=== PATIENT | female | born 1960 | race Caucasian/White ===

== ENCOUNTER 2024-10-25 05:58 | Day surgery (SDC) | payer MEDICARE, OTHER ==
[~2024-10-25] VITALS: Ht 165.1 cm; Wt 94.5 kg
[2024-10-25] VITALS (22 sets, daily range): BP systolic 105–172; BP diastolic 59–100
[~2024-10-25 05:58] MED LIST: ACET500 PO; ALBU2.5V5 INH; ALBU90OI INH; AMLO10 PO; AUVI-Q0.1 MG/0.2 INJ; BIOTIN1 MG PO; EPIPEN0.3 MG/0.3 IM; Flexeril10 MG PO; HYDCHL25 PO; LEVSOD88 PO; Loratadine10 MG PO; Omeprazole20 M1 PO; Pravastatin Sod80 MG PO; Ramipril10 MG PO; Vitamin D1000 UNI1 PO; [UNRECOGNIZED DRUG - OTHER] PO
[2024-10-25] MEDS ORDERED: Tranexamic Acid 100 ML IV SCH (06:10)
[2024-10-25] MEDS ORDERED: CeFAZolin Sodium 2,000 MG in NS 100 ML IV SCH ×2 (06:10→16:00)
[2024-10-25] MEDS ORDERED: Ropivacaine 0.5% HCl/Pf 123.125 MG,EPINEPHrine HCL 0.25 MG,Ketorolac Tromethamine 15 MG... INFIL SCH (06:10)
[2024-10-25] MEDS ORDERED: Chlorhexidine Mouth Care 15 ML UDC MT SCH (06:10)
--- NOTE | 2024-10-25 06:57 | NUR ---
Wheelchaired into Day Surgery. History, Chart, Medications and Allergies reviewed before start of procedure. Pre-Op teaching done. Pt verbalizes understanding.
[2024-10-25] MEDS ORDERED: Mepivacaine MPF 2% Inj 20 ML Vial ONE (07:25)
[2024-10-25] MEDS ORDERED: Midazolam HCl 1MG / ML 2ML Vial ONE (07:26)
[2024-10-25] MEDS ORDERED: Magnesium Hydroxide Conc 10 ML UDC PO PRN (07:30)
[2024-10-25] MEDS ORDERED: Ondansetron HCl 2 MG / ML 2ML Vial IV PRN ×2 (07:30→08:55)
[2024-10-25] MEDS ORDERED: Metoclopramide HCl 5MG / ML 2ML Vial IV PRN (07:30)
[2024-10-25] MEDS ORDERED: HYDROmorphone HCl/Pf 1MG SYR IV PRN ×2 (07:35→09:00)
[2024-10-25] MEDS ORDERED: Dexamethasone Sod Phos 10 MG/ML 1ML VIAL ONE (07:37)
[2024-10-25] MEDS ORDERED: Ondansetron HCl 2 MG / ML 2ML Vial ONE (07:37)
[2024-10-25] MEDS ORDERED: EpiNEPhrine 1 MG/1 ML 1ML Vial IM PRN (07:45)
[2024-10-25] MEDS ORDERED: Cholecalciferol 1000 Unit Tablet (=25MCG) PO SCH (07:45)
[2024-10-25] MEDS ORDERED: Albuterol 2.5 MG/3 ML VIAL INH PRN (07:45)
[2024-10-25] MEDS ORDERED: Albuterol HFA200 ACT/6.7 GM INH INH PRN (08:00)
[2024-10-25] MEDS ORDERED: Ketamine HCl 100 MG / ML 5ML Vial ONE (08:07)
[2024-10-25] MEDS ORDERED: Phenylephrine HCl 100 MCG/ML-NS 10MLSYR (1MG/10ML) ONE (08:22)
[2024-10-25] MEDS ORDERED: ePHEDrine Sulfate 50 MG/ML 1ML Injection IV PRN (09:00)
[2024-10-25] MEDS ORDERED: BIOTIN 1 MG PO SCH (09:00)
[2024-10-25] MEDS ORDERED: FentaNYL Citrate 50 MCG/ML 2 ML Injection IV PRN ×3 (09:00)
[2024-10-25] MEDS ORDERED: HYDROmorphone HCl/Pf 1MG SYR ONE ×2 (10:02→10:49)
[2024-10-25] MEDS ORDERED: Sugammadex Sodium 200 MG/2ML SDV (100 MG/ML) ONE (10:05)
[2024-10-25] MEDS ORDERED: Bupivacaine 0.5% HCl 5 MG/ML 30MLVIAL ONE (10:08)
[2024-10-25] MEDS ORDERED: Ketorolac Tromethamine 30mg Vial ONE (10:49)
[2024-10-25] MEDS ORDERED: FentaNYL Citrate 50 MCG/ML 2 ML Injection ONE ×2 (10:59→11:13)
[2024-10-25] MEDS ORDERED: Ketorolac Tromethamine 15mg Vial IV SCH (12:00)
--- NOTE | 2024-10-25 12:33 | NUR ---
ASSUMPTION PT ARRIVED @1225. FLUIDS INFUSING. PT RESTING BUT WAKES TO VOICE. FAMILY IN ROOM FOR ARRIVAL. VSS. COLD PACK TO R KNEE. CAP REFILL <3SEC TO R TOES.
--- NOTE | 2024-10-25 17:54 | NUR ---
SUMMARY POST ASSUMPTION OF CARE, NO ACUTE CHANGES. VSS. HAS REQUIRED NAUSEA MEDS X2. REQUIRING PAIN MEDS PER EMAR, PT APPEARS TO BE SENSITIVE TO OPIOIDS, REMAINS SOMEWHAT LETHARGIC BUT IT ALSO APPEARS THAT LACK OF FOLLOWING DIRECTIONS MAY BE A BASELINE COMPONENT OF PT'S MENTATION, CONTINUING TO ASSESS THIS. RTKA SITE DRESSING CDI. POLAR PACK IN PLACE. VOIDING WELL NOW. HAS BEEN OOB TO BSC X2 TIMES NOW. SENSATION INTACT TO BILAT LEGS. FRIEND HAS BEEN IN ROOM T/O POST OP, JUST LEFT. PT NOT UTILIZING CALL LIGHT INSTRUCTED, BED ALARM IN PLACE NOW.
[2024-10-26 02:42] VITALS: BP 146/79
[2024-10-26 05:30] LABS: BASOPHILS ABSOLUTE AUTO 0.04 K/mm3 (0.00-0.23); BASOPHILS PERCENT AUTO 0 % (0-2); EOSINOPHILS ABSOLUTE AUTO 0.00 K/mm3 (0.00-0.68); EOSINOPHILS PERCENT AUTO 0 % (0-6); Hematocrit 32.2 % (33.0-51.0); Hemoglobin 10.8 g/dL (11.5-16.0); IMMATURE GRAN ABSOLUTE AUTO 0.07 K/mm3 (0.00-0.10); IMMATURE GRAN PERCENT AUTO 0 % (0-1); LYMPHOCYTES ABSOLUTE AUTO 0.43 K/mm3 (0.84-5.20); LYMPHOCYTES PERCENT AUTO 2 % (21-46); MONOCYTES ABSOLUTE AUTO 0.80 K/mm3 (0.16-1.47); MONOCYTES PERCENT AUTO 5 % (4-13); Mean Corpuscular HGB Conc 33.5 g/dL (31.5-36.5); Mean Corpuscular Volume 83 fL (80-100); NEUTROPHILS ABSOLUTE AUTO 16.43 K/mm3 (1.96-9.15); NEUTROPHILS PERCENT AUTO 93 % (41-73); NRBC ABSOLUTE 0.00 K/mm3 (0.00-0.02); NRBC Auto 0.0 /100 WBC (0.0-0.2); Platelet Count 384 K/mm3 (150-400); RDW Coefficient Variation 13.4 % (11.7-14.2); RDW Standard Deviation 40.6 fL (35.1-46.3)
--- NOTE | 2024-10-26 06:24 | NUR ---
SHIFT SUMMARY PT S/P RIGHT TKA. PT HAS BEEN UP AND AMBULATING, AND VOIDING. SURGICAL SITE WNL. PT HAD TO BE REMINDED TO USE CALL LIGHT, SHE WOULD YELL OUT HELP WITHOUT UTILIZING CALL LIGHT. PT NOW USING CALL LIGHT APPROPRIATELY. PT IS AMBULATING BUT DOES HAVE A SLOW GAIT, AND REQUIRES LOTS OF VERBAL CUES. POST OP VITALS STABLE. PLAN OF CARE REMAINS UNCHANGED. BED IN LOWEST POSITION, CALL LIGHT WITHIN REACH.
[2024-10-26 07:23] VITALS: BP 142/81
[2024-10-26 07:27] LABS: Magnesium, Blood 2.1 mg/dL (1.6-2.4)
[2024-10-26 07:42] LABS: Anion Gap 9.0 mmol/L (3-11); Blood Urea Nitrogen 32.0 mg/dL (8-24); CO2, Blood 24.0 mmol/L (21-32); Calcium, Blood 9.0 mg/dL (8.5-10.1); Chloride, Blood 104.0 mmol/L (98-108); Creatinine, Blood 1.79 mg/dL (0.40-1.00); Glucose, Blood 135.0 mg/dL (70-99); Potassium, Blood 4.0 mmol/L (3.5-5.5); Sodium, Blood 133.0 mmol/L (136-145)
[2024-10-26] MEDS ORDERED: LINE600 PO (09:52)
[2024-10-26] MEDS ORDERED: OXAYDO5 M2 PO (09:54)
[2024-10-26] MEDS ORDERED: XARELTO20 MG PO (09:57)
[2024-10-26] MEDS ORDERED: ONDA4ODT MM (09:57)
--- NOTE | 2024-10-26 10:51 | NUR ---
ASSUMPTION/DC ASSUMED CARE OF PT @0700. AXO4. MILD PAIN NOTED. TOLERATED BREAKFAST WELL. VSS. DRESSING TO R KNEE CDI. PHYSICAL THERAPY WORKED WITH PT / OK'D FOR DC. UPON DOING DC INSTRUCTIONS, IT WAS FOUND THAT PT RECEIVED PRESCRIPTION OF XARELTO 10MG BID X 7 DAYS DESPITE THE ORDER BEING 10MG DAILY X 30 DAYS. THIS WAS CLARIFIED WITH DR WAGONER'S OFFICE, THE 10MG DAILY X 30 DAYS DOSE WAS CORRECT PRESCRIPTION, THIS WAS RESENT TO [facility] BY THIS RN AND DR MARK OFFICE. PT EDUCATED ALONG WITH ROOMATE TO NOTTAKE SECOND DOSE TONIGHT, SHE HAD RECEIVED ONE DOSE THIS AM AND TO SUPERVISOR [employer]INTE[employer]CE NEW PRESCRIPTIONS FROM [employer] - CALL IF NEEDED. COMPLETED REST OF DC INSTRUCTIONS. IV PULLED. PT WITH ALL BELONGINGS. WHEELED OUT TO CAR AND DC'D @5077.
== END 2024-10-26 10:47 | disposition home or self-care (01) ==
LOC: ORSCMMR 05:58 → ORD 07:30 → SURS 12:08 → ORSCMMR 10-26 10:47
PROVIDERS: Orthopaedic Surgery
PROC: 0SRC0J9 Replacement of Right Knee Joint with Synthetic Substitute, Cemented, Open Approach (ICD-10-PCS; principal; 2024-10-25 07:30)
DX: M17.11 Unilateral primary osteoarthritis, right knee (principal); I10 Essential (primary) hypertension; J45.909 Unspecified asthma, uncomplicated; K21.9 Gastro-esophageal reflux disease without esophagitis; Z79.899 Other long term (current) drug therapy; E03.9 Hypothyroidism, unspecified; Z87.891 Personal history of nicotine dependence
CPT/HCPCS: 36415; 73560-RT; 80048; 83735; 85025; 94760; 97110; 97116; 97162; A9270; C1713; C1776; J0670; J0690; J1100; J1171; J1885; J2250; J2371; J2405; J2704; J2765; J3010; J3373; J7050; J7120

== ENCOUNTER 2024-11-09 10:54 | Inpatient (IN) | payer MEDICARE, OTHER ==
[~2024-11-09] VITALS: Ht 170.2 cm; Wt 65.2 kg
[~2024-11-09 10:54] MED LIST changes: +LINE600 PO; +ONDA4ODT MM; +OXAYDO5 M2 PO; +XARELTO20 MG PO
[2024-11-09 13:45] LABS: Alanine Aminotransfer (ALT/SGP 34.0 U/L (12-78); Albumin, Blood 3.5 g/dL (3.4-5.0); Albumin/Globulin Ratio 0.9 (0.8-1.8); Anion Gap 13.0 mmol/L (3-11); Aspartate Aminotrans (AST/SGOT 45.0 U/L (12-37); Bilirubin, Total 0.6 mg/dL (0.1-1.0); Blood Urea Nitrogen 27.0 mg/dL (8-24); CO2, Blood 23.0 mmol/L (21-32); Calcium, Blood 9.2 mg/dL (8.5-10.1); Chloride, Blood 91.0 mmol/L (98-108); Creatinine, Blood 1.54 mg/dL (0.40-1.00); Globulin, Blood 3.9 g/dL (2.2-4.0); Glucose, Blood 126.0 mg/dL (70-99); Potassium, Blood 4.0 mmol/L (3.5-5.5); Sodium, Blood 123.0 mmol/L (136-145); Total Protein, Blood 7.4 g/dL (6.4-8.2)
[2024-11-09 14:09] LABS: BASOPHILS ABSOLUTE AUTO 0.06 K/mm3 (0.00-0.23); BASOPHILS PERCENT AUTO 0 % (0-2); EOSINOPHILS ABSOLUTE AUTO 0.00 K/mm3 (0.00-0.68); EOSINOPHILS PERCENT AUTO 0 % (0-6); Hematocrit 29.6 % (33.0-51.0); Hemoglobin 10.4 g/dL (11.5-16.0); IMMATURE GRAN ABSOLUTE AUTO 0.23 K/mm3 (0.00-0.10); IMMATURE GRAN PERCENT AUTO 1 % (0-1); LYMPHOCYTES ABSOLUTE AUTO 1.18 K/mm3 (0.84-5.20); LYMPHOCYTES PERCENT AUTO 4 % (21-46); MONOCYTES ABSOLUTE AUTO 2.25 K/mm3 (0.16-1.47); MONOCYTES PERCENT AUTO 8 % (4-13); Mean Corpuscular HGB Conc 35.1 g/dL (31.5-36.5); Mean Corpuscular Volume 82 fL (80-100); NEUTROPHILS ABSOLUTE AUTO 23.35 K/mm3 (1.96-9.15); NEUTROPHILS PERCENT AUTO 86 % (41-73); NRBC ABSOLUTE 0.00 K/mm3 (0.00-0.02); NRBC Auto 0.0 /100 WBC (0.0-0.2); RDW Coefficient Variation 13.7 % (11.7-14.2); RDW Standard Deviation 39.9 fL (35.1-46.3)
[2024-11-09] MEDS ORDERED: NS 1,000 ML IV SCH ×2 (14:35→19:00)
[2024-11-09] MEDS ORDERED: CefTRIAXone Sodium 1,000 MG in NS 50 ML IV ONE (15:45)
[2024-11-09 17:24] LABS: Source, Urine Clean Catch
[2024-11-09 18:32] LABS: Bilirubin, Urine Neg (Neg); Color, Urine Yellow (P-Yellow); Glucose Qualitative, Urine Neg (Neg); Ketones, Urine 1+ (Neg); Leukocyte Esterase, Urine 1+ (Neg); Protein, Urine 2+ (Neg); Specific Gravity, Urine 1.020 (1.003-1.022); Urobilinogen, Urine NORM (Normal)
[2024-11-09] MEDS ORDERED: Ondansetron HCl 2 MG / ML 2ML Vial IV PRN (18:45)
[2024-11-09] MEDS ORDERED: HYDROcodone 5-APAP 325 TAB PO PRN (18:45)
[2024-11-09] MEDS ORDERED: Albuterol 2.5 MG/3 ML VIAL INH PRN (18:50)
[2024-11-09 19:12] LABS: White Blood Cells, Urine 25-50 /hpf (0-5)
[2024-11-09] MEDS ORDERED: Lactobacil 2-S.Thermo-Bifido 1 1 Cap PO SCH (21:00)
[2024-11-09 22:04] VITALS: BP 111/53
[2024-11-09 23:43] LABS: Influenza A/2009-H1 Not Detected (NOT DETECT); SARS-Cov-2 (COVID-19), BioFire Not Detected (NOT DETECT)
[2024-11-10] VITALS (7 sets, daily range): BP systolic 119–147; BP diastolic 69–82
--- NOTE | 2024-11-10 06:30 | NUR ---
NIGHT SUMMARY: PT AOX4 BUT HAS CONFUSION. PT OVERNIGHT HAD EPISODE WHERE SHE TOOK ALL OF HER BLANKETS AND GOWN OFF AND WAS CALLING FOR HELP. 2 SOFT BM'S OVERNIGHT. ON RA. PAIN MEDICATION AND MUSCLE RELAXANT GIVEN PER EMAR. BED IN LOW POSITION AND CALL LIGHT WITHIN REACH. FLUIDS INFUSING OVERNIGHT.
[2024-11-10 10:32] LABS: BASOPHILS ABSOLUTE AUTO 0.03 K/mm3 (0.00-0.23); BASOPHILS PERCENT AUTO 0 % (0-2); EOSINOPHILS ABSOLUTE AUTO 0.05 K/mm3 (0.00-0.68); EOSINOPHILS PERCENT AUTO 0 % (0-6); Hematocrit 29.9 % (33.0-51.0); Hemoglobin 10.1 g/dL (11.5-16.0); IMMATURE GRAN ABSOLUTE AUTO 0.12 K/mm3 (0.00-0.10); IMMATURE GRAN PERCENT AUTO 1 % (0-1); LYMPHOCYTES ABSOLUTE AUTO 1.71 K/mm3 (0.84-5.20); LYMPHOCYTES PERCENT AUTO 9 % (21-46); MONOCYTES ABSOLUTE AUTO 1.60 K/mm3 (0.16-1.47); MONOCYTES PERCENT AUTO 8 % (4-13); Mean Corpuscular HGB Conc 33.8 g/dL (31.5-36.5); Mean Corpuscular Volume 82 fL (80-100); NEUTROPHILS ABSOLUTE AUTO 16.31 K/mm3 (1.96-9.15); NEUTROPHILS PERCENT AUTO 82 % (41-73); NRBC ABSOLUTE 0.00 K/mm3 (0.00-0.02); NRBC Auto 0.0 /100 WBC (0.0-0.2); Platelet Count 393 K/mm3 (150-400); RDW Coefficient Variation 13.8 % (11.7-14.2); RDW Standard Deviation 40.6 fL (35.1-46.3)
[2024-11-10] MEDS ORDERED: HYDR1TAB94 PO (11:22)
[2024-11-10] MEDS ORDERED: KETO15TC TOP (11:27)
[2024-11-10 11:40] LABS: Alanine Aminotransfer (ALT/SGP 33.0 U/L (12-78); Albumin, Blood 3.4 g/dL (3.4-5.0); Albumin/Globulin Ratio 0.8 (0.8-1.8); Anion Gap 14.0 mmol/L (3-11); Aspartate Aminotrans (AST/SGOT 47.0 U/L (12-37); Bilirubin, Total 0.6 mg/dL (0.1-1.0); Blood Urea Nitrogen 22.0 mg/dL (8-24); CO2, Blood 19.0 mmol/L (21-32); Calcium, Blood 8.8 mg/dL (8.5-10.1); Chloride, Blood 95.0 mmol/L (98-108); Creatinine, Blood 1.24 mg/dL (0.40-1.00); Globulin, Blood 4.1 g/dL (2.2-4.0); Glucose, Blood 103.0 mg/dL (70-99); Potassium, Blood 3.6 mmol/L (3.5-5.5); Sodium, Blood 124.0 mmol/L (136-145); Total Protein, Blood 7.5 g/dL (6.4-8.2)
[2024-11-10] MEDS ORDERED: Tranexamic Acid 100 ML IV SCH (14:15)
[2024-11-10 14:45] LABS: BODY FLUID RBC 0.141 M/mm3 (0-0); RBC Count, Synovial Fluid 141000 /mm3 (0-0); WBC Count, Synovial Fluid 1226 /mm3 (0-180)
[2024-11-10 15:32] LABS: Appearance, Synovial Fluid Bloody (Clear); Color, Synovial Fluid Red (None-P Yel); Lymphs, Synovial Fluid 5 % (0-15); Monocytes/Macrophages, Synovia 9 % (0-65); Neutrophils, Synovial Fluid 86 % (0-24)
--- NOTE | 2024-11-10 15:57 | NUR ---
SHIFT SUMMARY NO ACUTE CHANGES. PT IS A/Ox4 BUT HAS BITS OF CONFUSION AND ANXIETY. PT IS WORRISOME REGARDING FOOD IN FACILITY - BELIEVES TO BE POISON. ENCOURAGING PT INTAKE AND OFFERING FOOD FROM [employer] - PT REFUSES AND ONLY TAKING BITES. R KNEE ASPIRATION COMPLETED WELL SUTURE REMOVAL BY [employer] - ORDERS PLACED FOR NPO STATUS AFTER MIDNIGHT FOR POSSIBLE I&D TOMORROW. PT TREATED FOR PAIN WITH REPOSITONING - PT DID NOT WANT PAIN MEDICATIONS ADMINISTERED. PT/OT WORKING WITH PT. PUREWICK IN PLACE DUE TO PAIN AND WEAKNESS. PT CURRENTLY RESTING IN BED WITH BED IN LOWEST POSITON AND CALL LIGHT WITHIN REACH. NS RUNNING 100 ML/HR.
[2024-11-10] MEDS ORDERED: CefTRIAXone Sodium 1,000 MG in NS 100 ML IV SCH (16:00)
[2024-11-10] MEDS ORDERED: Vancomycin (Pharmacy Consult) IV SCH (17:40)
[2024-11-11 05:17] VITALS: BP 137/64
[2024-11-11 06:54] LABS: Anion Gap 14.0 mmol/L (3-11); Blood Urea Nitrogen 16.0 mg/dL (8-24); CO2, Blood 19.0 mmol/L (21-32); Calcium, Blood 8.1 mg/dL (8.5-10.1); Chloride, Blood 99.0 mmol/L (98-108); Creatinine, Blood 0.96 mg/dL (0.40-1.00); Glucose, Blood 83.0 mg/dL (70-99); Potassium, Blood 3.6 mmol/L (3.5-5.5); Sodium, Blood 128.0 mmol/L (136-145)
[2024-11-11 07:18] VITALS: BP 114/64
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
[2024-11-11 12:55] VITALS: BP 124/69
--- NOTE | 2024-11-11 12:59 | NUR ---
NOTE PT NPO THIS AM. NIGHT RN REPORTED PT WILL HAVE I&D TODAY. THIS RN CALLED DAY SURG MULTIPLE TIMES, GOT ANSWERING PHONE SERVICE. THIS RN CALLED NURSING SUPERVISER WHO REPORTED "PT NOT ON THE LIST FOR SURGERY TODAY." CALLED DR. DOS SANTOS TO NOTIFY OF PT NOT ON LIST. DR. DOS SANTOS "REPORTED TO NOTIFY DR. PIEDRA AND ASK IF PT COULD NOT BE NPO." THIS RN CALLED DR. PIEDRA LEFT VOICEMAIL. DR. PIEDRA GAVE VERBAL ORDER THAT PT CAN EAT A HEART HEALTHY REGULAR DIET. DR. PIEDRA REPORTED, "SURGERY CANCELLED. WILL ORDER CT." PT REPORTS FRIEND AT BEDSIDE.
--- NOTE | 2024-11-11 13:35 | NUR ---
NOTE DR. DOS SANTOS REPORTED "OK TO GIVE AM MEDS NOW." CONFIRMED WITH PHARMACY. PT REFUSED XARELTRO. REPORTED "ONLY SUPPOSED TO HAVE THAT A WEEK POST OP."
[2024-11-11 15:41] VITALS: BP 120/63
--- NOTE | 2024-11-11 19:05 | NUR ---
SHIFT SUMMARY PT A&OX4. PT ADMITTED DUE TO SIRS. PT HAS NS RUNNING AT 100ML/HR. PT REPORTS SOME PAIN, MANAGED PER EMAR. PT HAD IV ANTIBIOTICS TODAY. PALLIATIVE CARE CONSULT TO REVIEW CODE STATUS. PT IS INC AND HAS ATTENDS IN PLACE CHANGED PRN. CT COMPLETED TODAY. PT IS 2P MAX ASSIST. PT TURNED Q2. PT ON TELE, NO TELE REPORTS. PT IN BED, BED IN LOWEST POSITION, CALL LIGHT IN REACH.
[2024-11-11 20:12] VITALS: BP 114/65
[2024-11-12 05:55] LABS: BASOPHILS ABSOLUTE AUTO 0.07 K/mm3 (0.00-0.23); BASOPHILS PERCENT AUTO 1 % (0-2); EOSINOPHILS ABSOLUTE AUTO 0.16 K/mm3 (0.00-0.68); EOSINOPHILS PERCENT AUTO 2 % (0-6); Hematocrit 24.5 % (33.0-51.0); Hemoglobin 8.4 g/dL (11.5-16.0); IMMATURE GRAN ABSOLUTE AUTO 0.06 K/mm3 (0.00-0.10); IMMATURE GRAN PERCENT AUTO 1 % (0-1); LYMPHOCYTES ABSOLUTE AUTO 2.01 K/mm3 (0.84-5.20); LYMPHOCYTES PERCENT AUTO 20 % (21-46); MONOCYTES ABSOLUTE AUTO 1.15 K/mm3 (0.16-1.47); MONOCYTES PERCENT AUTO 11 % (4-13); Mean Corpuscular HGB Conc 34.3 g/dL (31.5-36.5); Mean Corpuscular Volume 83 fL (80-100); NEUTROPHILS ABSOLUTE AUTO 6.77 K/mm3 (1.96-9.15); NEUTROPHILS PERCENT AUTO 66 % (41-73); NRBC ABSOLUTE 0.00 K/mm3 (0.00-0.02); NRBC Auto 0.0 /100 WBC (0.0-0.2); Platelet Count 471 K/mm3 (150-400); RDW Coefficient Variation 14.1 % (11.7-14.2); RDW Standard Deviation 42.5 fL (35.1-46.3)
[2024-11-12 06:13] LABS: Anion Gap 11.0 mmol/L (3-11); Blood Urea Nitrogen 16.0 mg/dL (8-24); CO2, Blood 23.0 mmol/L (21-32); Calcium, Blood 7.8 mg/dL (8.5-10.1); Chloride, Blood 103.0 mmol/L (98-108); Creatinine, Blood 0.98 mg/dL (0.40-1.00); Glucose, Blood 83.0 mg/dL (70-99); Potassium, Blood 3.3 mmol/L (3.5-5.5); Sodium, Blood 134.0 mmol/L (136-145)
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
[2024-11-12] MEDS ORDERED: Enoxaparin 40 MG/0.4 ML SYR SC SCH (09:00)
[2024-11-12 10:54] VITALS: BP 118/69
--- NOTE | 2024-11-12 14:44 | NUR ---
NOTE PT REFUSED MORNING VITALS AND MEDS REPORTING "JUST WANT TO SLEEP." THIS RN GAVE MORNING MEDS LATE. PER PT REQUEST. PALLIATIVE CARE CAME TO CONSULT PT.
--- NOTE | 2024-11-12 14:52 | NUR ---
CODE STATUS UPDATE MET WITH PT THIS MORNING, DISCUSSED CODE STATUS. SHE STATES SHE WASN'T AWARE SHE COULDN'T HAVE CPR WITHOUT INTUBATION, AND AFTER REVIEWING A BLANK POLST TOGETHER, SHE ELECTED TO CHANGE CODE STATUS TO DNR. HOWEVER, SHE DID NOT WISH TO FILL OUT A POLST AT THIS TIME. DR. DOS SANTOS GAVE ORDER FOR DNR.
[2024-11-12] MEDS ORDERED: NS 250 ML IV PRN (16:55)
[2024-11-12 16:59] VITALS: BP 119/67
--- NOTE | 2024-11-12 18:44 | NUR ---
SHIFT SUMMARY PT A&OX4. PT ADMITTED DUE TO SIRS. PT REPORTS SCIATICA PAIN AND R SHOULDER PAIN. DR. DOS SANTOS ORDERED XRAY ON R SHOULDER. REPORTED TO DR. DOS SANTOS RESULTS. PT EATS ADEQUATE. PT CONT OF URINE AND BM. ATTENDS IN PLACE CHANGED PRN WITH WILLY. VSS. IV FLUIDS D/C TODAY. PT ON TELE. NO TELE REPORTS. DR. DOS SANTOS UPDATES PT CODE STATUS TO DNR PER PT REQUEST. PT IN BED, BED IN LOWEST POSITION, CALL LIGHT IN REACH. PT HAD IV ANTIBIOTICS TODAY. PT IS 2P MAX ASSIST.
[2024-11-12 19:13] VITALS: BP 106/93
[2024-11-12 23:42] VITALS: BP 116/71
[2024-11-13 03:50] VITALS: BP 107/67
--- NOTE | 2024-11-13 05:22 | NUR ---
SHIFT SUMMARY PT SLEPT LONG INTERVALS DURING THE NIGHT. PT ALERT AND ORIENTED THROUGHOUT THE SHIFT. MEDICATED FOR PAIN WITH ULTRAM PER EMAR. PT USING K-PAD FOR RIGHT SHOULDER PAIN. PT EDUCATED ON DANGER OF REN WHILE SLEEPING ON HEATING PAD, AND ENCOURAGED PT TO ALLOW THIS RN TO CHANGE SETTING TO INTERMITTENT, BUT PT INSISTS ON KEEPING THE K-PAD ON CONTINUOUS- SETTING IS 100 DEG. PT REFUSING MOST POSITION CHANGES. PUREWICK IN PLACE DRAINING JEAN COLORED URINE.
--- NOTE | 2024-11-13 05:32 | NUR ---
PT REFUSING LAB DRAW THIS AM. STATED TO [employer], "IT IS TOO DAM EARLY TO BE WAKING ME UP FOR THIS". LAB TO TRY TO DRAW BLOOD WORK LATER THIS AM.
[2024-11-13 07:14] VITALS: BP 119/71
[2024-11-13 09:02] LABS: BASOPHILS ABSOLUTE AUTO 0.05 K/mm3 (0.00-0.23); BASOPHILS PERCENT AUTO 1 % (0-2); EOSINOPHILS ABSOLUTE AUTO 0.24 K/mm3 (0.00-0.68); EOSINOPHILS PERCENT AUTO 3 % (0-6); Hematocrit 26.7 % (33.0-51.0); Hemoglobin 8.9 g/dL (11.5-16.0); IMMATURE GRAN ABSOLUTE AUTO 0.07 K/mm3 (0.00-0.10); IMMATURE GRAN PERCENT AUTO 1 % (0-1); LYMPHOCYTES ABSOLUTE AUTO 1.82 K/mm3 (0.84-5.20); LYMPHOCYTES PERCENT AUTO 22 % (21-46); MONOCYTES ABSOLUTE AUTO 0.80 K/mm3 (0.16-1.47); MONOCYTES PERCENT AUTO 10 % (4-13); Mean Corpuscular HGB Conc 33.3 g/dL (31.5-36.5); Mean Corpuscular Volume 84 fL (80-100); NEUTROPHILS ABSOLUTE AUTO 5.35 K/mm3 (1.96-9.15); NEUTROPHILS PERCENT AUTO 64 % (41-73); NRBC ABSOLUTE 0.00 K/mm3 (0.00-0.02); NRBC Auto 0.0 /100 WBC (0.0-0.2); Platelet Count 565 K/mm3 (150-400); RDW Coefficient Variation 14.4 % (11.7-14.2); RDW Standard Deviation 44.2 fL (35.1-46.3)
[2024-11-13 09:26] LABS: Anion Gap 9.0 mmol/L (3-11); Blood Urea Nitrogen 17.0 mg/dL (8-24); CO2, Blood 25.0 mmol/L (21-32); Calcium, Blood 8.4 mg/dL (8.5-10.1); Chloride, Blood 102.0 mmol/L (98-108); Creatinine, Blood 0.92 mg/dL (0.40-1.00); Glucose, Blood 96.0 mg/dL (70-99); Potassium, Blood 3.7 mmol/L (3.5-5.5); Sodium, Blood 132.0 mmol/L (136-145)
[2024-11-13 09:44] VITALS: BP 119/69
[2024-11-13 11:04] VITALS: BP 125/73
[2024-11-13 14:59] VITALS: BP 131/84
[2024-11-13] MEDS ORDERED: CEFP200 PO (15:11)
[2024-11-13] MEDS ORDERED: TRAM50 PO (15:11)
[2024-11-13] MEDS ORDERED: VISBIOME 112.51 EACH PO (15:11)
--- NOTE | 2024-11-13 17:45 | NUR ---
DISCHARGE NOTE- PT WAS DISCHARGED TO [facility]. SHE WAS ASSISTED BY 2 STAFF TO TRANSFER TO THE WHEEL CHAIR. MEDICATED WITH TRAMADOL AT THE TIME OF DISCHARGE THE PAIN MEDS WILL NOT BE AVAILABLE FOR A FEW HOURS AT [facility]. NOTED NO HARD COPY SCRIPT IN THE PACKET FOR THE PAIN MEDS. CALLED DR CLARK AND LEFT A MESSAGE. CALLED NIGHT HOSPITALIST [facility] AND HE WROTE THE SCRIPT FOR PAIN MEDS. HE REQUESTED THIS RN CALL THE FACILITY TO CONFIRM THEY CAN GET THE PT'S PAIN MEDICATION TONIGHT. CALLED [facility] AND SPOKE TO THE STAFF, IF THEY RECIEVE THE HARD COPY SCRIPT THEY CAN GET THE PT HER PAIN MEDS. [facility] PROVIDED THE SCRIPT. PT WAS TAKEN VIA WC TRANSPORT TO [facility], IV AND TELE DC'D AT THE TIME OF DISCHARGE. HARD COPY PAIN SCRIPT IN THE PACKET FOR DISCHARGE TO THE FACILITY. CALLED [facility] AND GAVE TELEPHONE REPORT. NO S&S OF DISTRESS NOTED AT THE TIME THE PT DC'D.
== END 2024-11-13 17:38 | DRG 871 ==
LOC: ER 10:54 → MEDS 10:55 → ERHOLD 10:55 → MEDS 21:50
PROVIDERS: Family Medicine; Orthopaedic Surgery; Student in an Organized Health Care Education/Training Program; ADMIT Internal Medicine
PROC: 3E03329 Introduction of Other Anti-infective into Peripheral Vein, Percutaneous Approach (ICD-10-PCS; principal; 2024-11-10)
PROC: 0S9C3ZZ Drainage of Right Knee Joint, Percutaneous Approach (ICD-10-PCS; 2024-11-10)
DX: A41.9 Sepsis, unspecified organism (principal); G93.41 Metabolic encephalopathy; E87.1 Hypo-osmolality and hyponatremia; N39.0 Urinary tract infection, site not specified; I12.9 Hypertensive chronic kidney disease with stage 1 through stage 4 chronic kidney disease, or unspecified chronic kidney disease; N18.30 Chronic kidney disease, stage 3 unspecified; D63.1 Anemia in chronic kidney disease; R29.6 Repeated falls; E87.6 Hypokalemia; E78.5 Hyperlipidemia, unspecified; K21.9 Gastro-esophageal reflux disease without esophagitis; E03.9 Hypothyroidism, unspecified; Z96.651 Presence of right artificial knee joint; Z79.01 Long term (current) use of anticoagulants; Z79.890 Hormone replacement therapy; Z79.899 Other long term (current) drug therapy; Z79.891 Long term (current) use of opiate analgesic; Z88.2 Allergy status to sulfonamides
CPT/HCPCS: 0202U; 36415; 70450; 71046; 73030; 73562-RT; 80048; 80053; 81001; 83605; 83735; 84439; 84443; 84481; 84484; 85025; 85651; 86140; 87077; 87086; 87186; 89051; 93005; 93010; 94760; 96365; 97110; 97116; 97162; 97166; 97530; 99285-25; A6590; A9270; G0378; J0696; J3373; J7030; J7050